=== PATIENT | female | born 1950 | race Caucasian/White ===

== ENCOUNTER 2016-10-25 16:45 | Emergency (ER) | payer MEDICARE ==
[~2016-10-25] VITALS: Ht 157.5 cm; Wt 74.4 kg
[2016-10-25 17:54] LABS: POTASSIUM ISTAT 3.3 mmol/L (3.5-5.0)
[2016-10-25] MEDS ORDERED: IV NORMAL SALINE 500ML BAG 500 ML IV ONE (18:00)
[2016-10-25] MEDS ORDERED: ONDANSETRON PF 4 MG/2 ML VIAL. IV ONE (18:00)
[2016-10-25] MEDS ORDERED: MECLIZINE HCL 12.5 MG TABLET. PO ONE (18:00)
[2016-10-25 18:01] LABS: BASO % 0 % (0-3); EOS % 1 % (0-3); HEMATOCRIT 45.6 % (36.0-47.0); HEMOGLOBIN 15.4 g/dL (12.0-15.5); LYMPH # 2.7 x10^3/uL (1.0-4.8); LYMPH % 28 % (24-48); MEAN CORPUSCULAR HEMOGLOBIN 29 pg (25-35); MEAN CORPUSCULAR HGB CONC 34 g/dL (31-37); MEAN CORPUSCULAR VOLUME 86 fL (79-100); MONO % 7 % (0-9); NEUT % 64 % (31-73); PLATELET COUNT 298 x10^3/uL (140-400); RED BLOOD COUNT 5.32 x10^6/uL (3.50-5.40); RED CELL DISTRIBUTION WIDTH 13.6 % (11.5-14.5); WHITE BLOOD COUNT 9.6 x10^3/uL (4.0-11.0)
[2016-10-25 18:02] LABS: BILIRUBIN,URINE NEGATIVE (NEG); GLUCOSE,URINE NEGATIVE (NEG); NITRITE,URINE NEGATIVE (NEG); PH,URINE 5.5; PROTEIN,URINE NEGATIVE (NEG-TRACE); UROBILINOGEN,URINE 0.2 mg/dL (0.2 mg/dL)
--- NOTE | 2016-10-25 18:05 | PHYS DOC ---
Past Medical History Additional Past Medical Histor: denies diabetes Alcohol Use: None Adult General Chief Complaint Chief Complaint: DIZZY/LIGHT HEADED HPI HPI Patient is a 66 year old female who presents with 4 day history of sudden onset of vertigo-like symptoms that involve a feeling of the room spinning when standing up and walking with head movement; no nausea vomiting; no headache or blurry vision; some gait disturbance with leaning to the right with ambulation. No slurred speech and the family members do not feel that she's had any slurred speech objectively. No prior history of this problem. No prior strokes. Denies difficulty speaking or swallowing. Review of Systems Review of Systems Constitutional: Denies fever or chills [] Eyes: Denies change in visual acuity, redness, or eye pain [] HENT: Denies nasal congestion or sore throat [] Respiratory: Denies cough or shortness of breath [] Cardiovascular: No additional information not addressed in HPI [] GI: Denies abdominal pain, nausea, vomiting, bloody stools or diarrhea [] : Denies dysuria or hematuria [] Musculoskeletal: Denies back pain or joint pain [] Integument: Denies rash or skin lesions [] Neurologic: Denies headache, focal weakness or sensory changes [] Endocrine: Denies polyuria or polydipsia [] Current Medications Current Medications Current Medications Medications (Trade) Dose Ordered Sig/Huber Start Time Stop Time Status Last Admin Dose Admin Info (Do NOT chart on this entry -- for MONITORING) 1 each PRN DAILY PRN 10/25/16 18:15 10/25/16 20:22 DC Iohexol (Omnipaque 300 Mg/ml) 75 ml 1X ONCE 10/25/16 18:15 10/25/16 18:16 DC Meclizine HCl (Antivert) 25 mg 1X ONCE 10/25/16 18:00 10/25/16 18:01 DC 10/25/16 18:26 25 MG Ondansetron HCl (Zofran) 4 mg 1X ONCE 10/25/16 18:00 10/25/16 18:01 DC 10/25/16 18:26 4 MG Sodium Chloride 500 ml @ 500 mls/hr 1X ONCE 10/25/16 18:00 10/25/16 18:59 DC 10/25/16 18:26 500 MLS/HR Allergies Allergies Allergies Coded Allergies Type Severity Reaction Last Updated Verified dextromethorphan Allergy Intermediate 10/25/16 Yes guaifenesin Allergy Intermediate 10/25/16 Yes codeine Allergy Unknown 10/25/16 Yes fluticasone Allergy Unknown 10/25/16 Yes levofloxacin Allergy Unknown 10/25/16 Yes salmeterol Allergy Unknown 10/25/16 Yes Physical Exam Physical Exam Constitutional: Well developed, well nourished, no acute distress, non-toxic appearance. [] HENT: Normocephalic, atraumatic, bilateral external ears normal, oropharynx moist, no oral exudates, nose normal. [] Eyes: PERRLA, EOMI, conjunctiva normal, no discharge. Nystagmus with right lateral gaze [] Neck: Normal range of motion, no tenderness, supple, no stridor. [] Cardiovascular:Heart rate regular rhythm, no murmur [] Lungs & Thorax: Bilateral breath sounds clear to auscultation [] Abdomen: Bowel sounds normal, soft, no tenderness, no masses, no pulsatile masses. [] Skin: Warm, dry, no erythema, no rash. [] Back: No tenderness, no CVA tenderness. [] Extremities: No tenderness, no cyanosis, no clubbing, ROM intact, no edema. [] Neurologic: Alert and oriented X 3, normal motor function, normal sensory function, no focal deficits noted. Good finger to nose heel to echavarria; no pronator drift; equal concrete truck driver strength; able to say the phrase "can't teach an old dog new tricks." [] Psychologic: Affect normal, judgement normal, mood normal. [] Current Patient Data Vital Signs Vital Signs Date Time Temp Pulse Resp B/P (MAP) Pulse Ox O2 Delivery O2 Flow Rate FiO2 10/25/16 19:23 68 18 132/62 (85) 95 10/25/16 17:32 Room Air 10/25/16 17:06 98.1 98.1 Lab Values Laboratory Tests Test 10/25/16 17:25 10/25/16 17:40 10/25/16 17:49 Urine Color Yellow Urine Clarity Clear Urine pH 5.5 Urine Specific [place] <=1.005 Urine Protein Negative mg/dL (NEG-TRACE) Urine Glucose (UA) Negative mg/dL (NEG) Urine Ketones (Stick) Negative mg/dL (NEG) Urine Blood Small (NEG) Urine Nitrite Negative (NEG) Urine Bilirubin Negative (NEG) Urine Urobilinogen Dipstick 0.2 mg/dL (0.2 mg/dL) Urine Leukocyte Esterase Negative (NEG) Urine RBC 0 /HPF (0-2) Urine WBC Occ /HPF (0-4) Urine Squamous Epithelial Cells Occ /LPF Urine Bacteria 0 /HPF (0-FEW) White Blood Count 9.6 x10^3/uL (4.0-11.0) Red Blood Count 5.32 x10^6/uL (3.50-5.40) Hemoglobin 15.4 g/dL (12.0-15.5) Hematocrit 45.6 % (36.0-47.0) Mean Corpuscular Volume 86 fL (79-100) Mean Corpuscular Hemoglobin 29 pg (25-35) Mean Corpuscular Hemoglobin Concent 34 g/dL (31-37) Red Cell Distribution Width 13.6 % (11.5-14.5) Platelet Count 298 x10^3/uL (140-400) Neutrophils (%) (Auto) 64 % (31-73) Lymphocytes (%) (Auto) 28 % (24-48) Monocytes (%) (Auto) 7 % (0-9) Eosinophils (%) (Auto) 1 % (0-3) Basophils (%) (Auto) 0 % (0-3) Neutrophils # (Auto) 6.1 x10^3uL (1.8-7.7) Lymphocytes # (Auto) 2.7 x10^3/uL (1.0-4.8) Monocytes # (Auto) 0.6 x10^3/uL (0.0-1.1) Eosinophils # (Auto) 0.1 x10^3/uL (0.0-0.7) Basophils # (Auto) 0.0 x10^3/uL (0.0-0.2) Sodium Level 145 mmol/L (136-145) Potassium Level 3.4 mmol/L (3.5-5.1) L Chloride Level 107 mmol/L (98-107) Carbon Dioxide Level 29 mmol/L (21-32) Anion Gap 9 (6-14) 17 mmol/L (6-14) H Blood Urea Nitrogen 9 mg/dL (7-20) Creatinine 0.8 mg/dL (0.6-1.0) Estimated GFR (Cockcroft-Gault) 71.5 BUN/Creatinine Ratio 11 (6-20) Glucose Level 103 mg/dL (70-99) H 96 mg/dL (70-99) Calcium Level 9.2 mg/dL (8.5-10.1) Total Bilirubin 0.4 mg/dL (0.2-1.0) Aspartate Amino Transferase (AST) 13 U/L (15-37) L Alanine Aminotransferase (ALT) 19 U/L (14-59) Alkaline Phosphatase 73 U/L (46-116) Total Protein 7.1 g/dL (6.4-8.2) Albumin 3.6 g/dL (3.4-5.0) Albumin/Globulin Ratio 1.0 (1.0-1.7) POC Hemoglobin 15.0 g/dL (12-15) POC Hematocrit 44 % (36-40) H POC Sodium 144 mmol/L (135-145) POC Potassium 3.3 mmol/L (3.5-5.0) L POC Chloride 105 mmol/L (98-110) POC Total CO2 26 mmol/L (23-32) POC Blood Urea Nitrogen 7 mg/dL (8-26) L POC Creatinine 0.8 mg/dL (0.5-1.4) POC Ionized Calcium (Miguel Ángel) 1.15 mmol/L (1.13-1.32) Laboratory Tests 10/25/16 17:40 Laboratory Tests 10/25/16 17:40 10/25/16 17:49 EKG EKG EKG normal sinus rhythm rate of 71 no STEMI some PACs QTC normal my interpretation [] Radiology/Procedures Radiology/Procedures CTA head and neck mild plaquing in the carotid arteries that's not surgical at this point no evidence of stroke per radiology report [] Course & Med Decision Making Course & Med Decision Making Pertinent Labs and Imaging studies reviewed. (See chart for details) Patient was treated symptomatically with good improvement of symptoms. No evidence of stroke on the CT and this is 4 days into her symptoms. We reexamined her prior to dismissal and she was not orthostatic as far as vital signs and she was able to ambulate without any ataxia which leads me to believe that this is truly a peripheral vertigo presentation and not either central vertigo or posterior circulation compromise or stroke. [] Dragon Disclaimer Dragon Disclaimer This electronic medical record was generated, in whole or in part, using a voice recognition dictation system. Departure Departure Impression: Primary Impression: Benign paroxysmal positional vertigo Disposition: 01 HOME, SELF-CARE Condition: IMPROVED Referrals: ANN MARIE AGRAWAL MD (PCP) Patient Instructions: Benign Positional Vertigo, Vertigo, [id number] Scripts Meclizine Hcl (MECLIZINE HCL) 25 Mg Tablet 1 TAB PO TID for DIZZINESS, #30 TAB Prov: MIRIAN MOSQUERA MD 10/25/16 MIRIAN MOSQUERA MD Oct 25, 2016 18:05
[2016-10-25 18:14] LABS: CALCIUM 9.2 mg/dL (8.5-10.1); CREATININE 0.8 mg/dL (0.6-1.0); GFR 71.5; POTASSIUM 3.4 mmol/L (3.5-5.1)
[2016-10-25] MEDS ORDERED: CONTRAST GIVEN MC PRN (18:15)
[2016-10-25] MEDS ORDERED: IOHEXOL 300 MG/ML 75 ML VIAL IV ONE (18:15)
[2016-10-25 18:17] LABS: BACTERIA,URINE 0 /HPF (0-FEW); RBC,URINE 0 /HPF (0-2); SQUAMOUS EPITHELIAL CELL,UR OCC /LPF; WBC,URINE OCC /HPF (0-4)
[2016-10-25 18:19] LABS: ALBUMIN 3.6 g/dL (3.4-5.0); TOTAL BILIRUBIN 0.4 mg/dL (0.2-1.0); TOTAL PROTEIN 7.1 g/dL (6.4-8.2)
--- NOTE | 2016-10-25 18:32 | EKG ---
[facility] [address] [place] [address] Test Date: 2016-10-25 Test Time: 17:15:11 Pat Name: AIYANA BEAVER Department: Room: Gender: F Pmo Consultant: : [id number] Requested By: MIRIAN MOSQUERA Order Number: [id number] Reading MD: Yeison Sena Measurements Intervals [place] Rate: 71 P: 27 SC: 150 QRS: -2 QRSD: 84 T: 37 QT: 414 QTc: 450 Interpretive Statements SINUS RHYTHM ATRIAL PREMATURE COMPLEX(ES) INTERPOLATED ATRIAL PREMATURE COMPLEX(ES) Electronically Signed On 10-26-2016 9:32:11 CDT by Yeison Sena
--- NOTE | 2016-10-25 18:50 | RAD ---
EXAM: CT angiogram of the head and neck with intravenous contrast. HISTORY: Dizziness and vertigo. TECHNIQUE: Computed tomographic images the head and neck were obtained following the administration of 75 cc Omnipaque 300 intravenous contrast. Three-dimensional maximum intensity projection images were obtained. *One or more of the following individualized dose reduction techniques were utilized for this examination: 1. Automated exposure control. 2. Adjustment of the mA and/or kV according to patient size. 3. Use of iterative reconstruction technique. COMPARISON: None. FINDINGS: Head: There is no evidence of hemorrhage. There is no mass effect or midline shift. There is no hydrocephalus. The eric and white matter differentiation pattern is intact. No suspicious enhancing lesion is seen. There is no evidence of hemodynamically significant stenosis within the intracranial arteries. The left vertebral artery slightly dominant. The posterior communicating arteries are developmentally hypoplastic or absent. The anterior communicating artery is patent. No aneurysm is seen. The orbits, paranasal sinuses and mastoid air cells are unremarkable. No suspicious calvarial lesion is seen. Neck: There is a standard aortic arch branching pattern. There is no evidence of hemodynamically significant stenosis within the arch great vessels. There is partially calcified atherosclerotic plaque within the proximal right internal carotid artery, with 50-69 percent stenosis at the right ICA origin. No hemodynamically significant stenosis is seen within the left carotid bifurcation. There is a heterogeneously enlarged thyroid containing multiple nodules and cysts and calcifications. There is a 4 mm nodular opacity within the left upper lobe due to volume averaging of a pulmonary branch vessel. There is degenerative change throughout the cervical spine. This includes disc bulges, protrusions, endplate osteophytosis and right greater than left facet arthropathy. This results in mild right foraminal stenosis at C2-C3, mild right foraminal stenosis at C3-C4, mild central canal stenosis at C4-C5, and moderate to severe right and moderate left foraminal and mild to moderate central canal stenosis at C5-C6. No suspicious osseous lesion is seen. IMPRESSION: 1. No acute intracranial finding or evidence of significant intracranial arterial stenosis. 2. Moderate atherosclerotic plaque within the proximal right ICA, resulting in 50-69 percent stenosis at the right ICA origin. No additional stenosis is seen within the cervical vessels. 3. Heterogeneously enlarged thyroid containing multiple cysts, nodules and calcifications, likely due to a goiter. This can be further characterized with a thyroid sonogram. 4. Multilevel degenerative change throughout the cervical spine, described above. PQRS Compliance Statement - Stenosis calculations for CT, MR and conventional angiography are based upon measurement of the distal ICA diameter in accordance with the NASCET methodology. Stenosis calculations for carotid ultrasound studies are derived from validated velocity criteria which are known to correlate with the NASCET methodology. Electronically signed by: Elva Muniz MD (10/25/2016 6:46 PM) [facility]
[2016-10-25 19:23] VITALS: BP 132/62
[2016-10-25] MEDS ORDERED: MECL25TA3 PO (19:59)
== END 2016-10-25 20:18 | disposition home or self-care (01) ==
LOC: ER 16:45
DX: H81.10 Benign paroxysmal vertigo, unspecified ear (principal)
CPT/HCPCS: 36415; 70496; 70498; 80047; 80053; 81001; 85025; 93005; 96361; 96374; 99285; J2405; J7040; J8597